=== PATIENT | male | born 1950 | race Caucasian/White ===

== ENCOUNTER 2022-09-18 16:17 | Emergency (ER) | payer MEDICARE, SELFPAY ==
[2022-09-18 16:21] VITALS: BP 179/78; PULSE 82; RESP 18; TEMP 36.7; O2SAT 98
[2022-09-18 16:59] VITALS: RESP 16
--- NOTE | 2022-09-18 17:01 | ED.GENADUL_ITS ---
Discharge Plan Disposition Patient Disposition: Home Discharge Details Clinical Impression: Swelling of left lower extremity Primary Care Provider: Iveth Negron I ED Provider: Ruben Hand Home Meds and New Rx's Prescriptions: Continued atorvastatin 10 mg Tablet 10 mg PO DAILY omeprazole 40 mg Capsule,Delayed Release(Dr/Ec) 40 mg PO DAILY tamsulosin 0.4 mg Capsule 0.4 mg PO QHS lisinopril 10 mg Tablet 10 mg PO DAILY docosahexaenoic acid-epa Capsule 1 cap PO DAILY levothyroxine 50 mcg Capsule 50 mcg PO DAILY tramadol 100 mg Tablet 100 mg PO QHS PRN Discharge Instructions Instructions: Enoxaparin (By injection), Deep Vein Thrombosis (ED) Additional Instructions: Based on your symptoms, your history of current and active cancer, and unofficial bedside ultrasound there is high suspicion for you having a potential deep vein thrombosis(clot). Given this high risk scenario you have been given a single dose of a blood thinner that will cover you for 24 hours. Because you have been given this blood thinner please be mindful that you are at higher risk of bleeding episodes so if you develop any severe abnormal bruising, bleeding from your rectum, urinary bleeding, vomiting blood, or suffer from any trauma you will need to be reevaluated. You will need to return to [facility] Radiology department tomorrow morning at 830 for a ultrasound of your left leg to obtain better imaging and confirm or rule out a DVT. If you develop any new or significant worsening of symptoms feel free to return the emergency department for reassessment otherwise continue your follow-up with oncology tomorrow after your ultrasound. Referrals: [facility] [Provider Group] (As previously scheduled) Discharge Data Discharge Date/Time-TO BE ENTERED AT DEPARTURE: 09/18/22 18:14 Medical Decision Making Patient presenting to the emergency department for chief complaint of left leg swelling. Patient reports he woke up this morning and noted swelling to his left leg. He was sent to the emergency department by cancer center given that he is undergoing treatment for liposarcoma and is at high risk of clots due to active cancer. Patient denies any pain discomfort chest pain shortness of breath or other symptoms. Physical exam does show diffuse swelling and increased size of the left lower extremity from the mid thigh down. Exam is otherwise unremarkable, no tenderness, full range of motion, full sensation, intact pulses no erythema no calf tenderness. Patient has normal gait. Exam otherwise unremarkable. Unofficial bedside ultrasound was performed given that no commercial maintenance technician was available. There is an area of question just approximately 5 cm superior to the left knee with reduced compressibility. Given this I did discuss with patient risk versus benefit of single dose of Lovenox that would cover him for 24 hours until he can obtain official ultrasound. Patient is in agreement with receiving medication with understanding of risk of anticoagulation. We will check patient's labs given that we have not on file to verify platelet status given that he is undergoing chemo and radiation. Review of patient's labs show slight anemia but platelet count is 139, CMP does show decreased renal function but GFR is greater than 30. Did speak with pharmacist in regards to dosing which she stated standard dosing was appropriate. 1.5 mg/kg was given and patient to be discharged to follow-up tomorrow morning for official ultrasound that was already ordered by oncologist. Patient will follow-up with oncology team for discussion of results and further treatment or return to the emergency department as needed. After discussion of diagnosis and plan of care patient has no further needs, questions, or concerns and states clear understanding to return to the emergency department for any worsening symptoms. This documentation was generated using [employer] dictation system, please disregard any oddities of phrase or misspellings. HPI General Mode of arrival: ambulatory . Date/Time Provider Initiated Documentation: 09/18/22 16:18 . Limitations to Documentation: no limitations . Information obtained by: RN notes reviewed . History of Present Illness 72 year old M presents to the emergency department with the chief complaint of Left leg swelling, Quality is described as constant, and is localized to the left and lower extremity. Patient reports no radiation. Patient started experiencing this hour(s) (8) and it has been constant. No relieving factors improve symptom(s), No exacerbating factors reported . Patient notes no other symptoms.. Patient did receive the following treatments prior to arrival, none Related Data Home Medications Medication Instructions Recorded Confirmed atorvastatin 10 mg tablet 10 mg PO DAILY 09/18/22 09/18/22 docosahexaenoic acid (dha)-epa 1 cap PO DAILY 09/18/22 09/18/22 capsule levothyroxine 50 mcg capsule 50 mcg PO DAILY 09/18/22 09/18/22 lisinopril 10 mg tablet 10 mg PO DAILY 09/18/22 09/18/22 omeprazole 40 mg capsule,delayed 40 mg PO DAILY 09/18/22 09/18/22 release tamsulosin 0.4 mg capsule 0.4 mg PO QHS 09/18/22 09/18/22 tramadol 100 mg tablet 100 mg PO QHS PRN 09/18/22 09/18/22 Allergies Allergy/AdvReac Type Severity Reaction Status Date / Time No Known Allergies Allergy Unverified 09/18/22 16:21 General Stated Complaint: Vascular TONJA: 3 Review of Systems Constitutional Constitutional: Denies chills, Denies fever(s) and Denies headache(s) ENT Ears, Nose, Mouth, and Throat: Denies headache(s) Cardiovascular Cardiovascular: Denies chest pain, Denies irregular heart rhythm, Reports leg edema, Denies lightheadedness and Denies dyspnea Respiratory Respiratory: Denies dyspnea Gastrointestinal Gastrointestinal: Denies abdominal pain Musculoskeletal Musculoskeletal: Reports as per HPI Neurologic Neurologic: Denies headache(s) and Denies sensory deficit PFSH All Active Problems (Updated 09/18/22 @ 17:57 by Ruben Hand NP) Swelling of left lower extremity (Acute) Liposarcoma (Acute) Social History Smoking/Tobacco Use Status: Never Smoking risk assessment performed?: Yes Alcohol Intake: never Substance use type: does not use Exam Const General: cooperative, healthy appearing, comfortable and no acute distress Orientation: alert, awake and oriented x3 Resp Effort & Inspection: normal respiratory effort and able to speak in complete sen tences Auscultation: clear to auscultation bilaterally Cardio Rate: regular rate Rhythm: regular rhythm Heart Sounds: S1 normal and S2 normal Pulses: normal peripheral pulses Neuro General: patient alert, patient awake, patient oriented x3, moves all extremities and no focal motor deficits Extrem General: normal exam except as noted and edema Laterality: left (From mid thigh down) Course Vital Signs Vital signs: Vital Signs Temperature 36.7 C 09/18/22 16:21 Pulse 82 09/18/22 16:21 Respiratory Rate 18 09/18/22 16:21 Blood Pressure 179/78 H 09/18/22 16:21 Pulse Oximetry 98 09/18/22 16:21 Temperature 36.7 C 09/18/22 16:21 Temperature Source Temporal Artery Scan 09/18/22 16:21 Pulse 82 09/18/22 16:21 Respiratory Rate 18 09/18/22 16:21 Respiratory Effort Normal, Non-Labored 09/18/22 16:20 Blood Pressure 179/78 H 09/18/22 16:21 Pulse Oximetry 98 09/18/22 16:21 Oxygen Delivery Method Room Air 09/18/22 16:21 Oxygen Flow Rate 0 09/18/22 16:21
[2022-09-18 17:16] LABS: Abs Immature Grans 0.03 10^3/uL (0.0-0.06); Absolute Basophil Count 0.01 10^3/uL (0.0-0.2); Absolute Monocyte Count 0.41 10^3/uL (0.1-0.8); Absolute Neutrophil Count 3.74 10^3/uL (1.2-6.7); Basophils % 0.2; Eosinophils % 2.2; HGB 12.5 g/dL (13.5-17.5); Immature Grans % 0.7; Lymphocytes % 4.5; MCH 30.9 pg (27.0-33.0); MCHC 36.8 % (32.0-36.0); MCV 84 fL (80-95); MPV 8.8 fL (8.0-11.0); Monocytes % 9.1; Neutrophils % 83.3; Platelet Count 139 10^3/uL (130-400); RBC 4.04 10^6/uL (4.36-5.78); RDW 11.9 % (11.8-14.1); RDW-SD 35.3 fL; WBC 4.49 10^3/uL (4.4-10.8)
[2022-09-18 17:40] LABS: ALT 21 U/L (16-63); AST 14 U/L (15-37); Albumin 3.7 g/dL (3.4-5.0); Alkaline Phosphatase 84 U/L (46-116); Anion Gap 8.1 mmol/L (3-11); BUN 23 mg/dL (7-18); Bilirubin, Total 0.6 mg/dL (0.2-1.0); CO2 26.9 mmol/L (21.0-32.0); CREATININE 1.9 mg/dL (0.70-1.30); Calcium 9.2 mg/dL (8.5-10.1); Chloride 105 mmol/L (98-107); Estimated GFR 37.02 (mL/min/1.73m2); Glucose 116 mg/dL (74-106); Potassium 3.8 mmol/L (3.5-5.1); Sodium 140 mmol/L (136-145); Total Protein 6.9 g/dL (6.4-8.2)
[2022-09-18] MEDS: Enoxaparin 100 MG/ML SYR SC (18:09)
== END 2022-09-18 18:14 | disposition home or self-care (01) ==
PROVIDERS: Emergency Provider Nurse Practitioner Family; PCP Family Medicine
DX: R60.0 Localized edema (principal); M79.89 Other specified soft tissue disorders; D64.9 Anemia, unspecified; C49.9 Malignant neoplasm of connective and soft tissue, unspecified
CPT/HCPCS: 36415; 80053; 96372; 99284; 85025; J1650

== ENCOUNTER 2022-09-19 00:32 | Outpatient (CLI) | payer MEDICARE, SELFPAY ==
--- NOTE | 2022-09-19 | DI.US_ITS ---
Exam(s) US LOWER EXTREMITY VENOUS LT EXAM: US LOWER EXTREMITY VENOUS LT CLINICAL HISTORY: NEW LEG SWELLING IN CA PT, ? 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 COMPARISON: No exams were available for comparison FINDINGS: There is no evidence of intraluminal thrombus and there is normal compression and augmentation demons trated within the common femoral vein, femoral vein, and popliteal vein. In the ipsilateral calf the interrogated veins also exhibit normal compression/ augmentation properti es. The ipsilateral saphenofemoral junction is patent. IMPRESSION: 1. No evidence of DVT in the left lower extremity. DATA REPOSITORY:
== END 2022-09-19 00:52 ==
PROVIDERS: PCP Family Medicine; Visit Provider Radiology Radiation Oncology
DX: R22.42 Localized swelling, mass and lump, left lower limb (principal); C48.0 Malignant neoplasm of retroperitoneum
CPT/HCPCS: 93971